=== PATIENT | female | born 1980 | race Caucasian/White ===

== ENCOUNTER 2017-10-05 13:45 | Emergency (ER) | payer OTHER ==
[~2017-10-05] VITALS: Ht 177.8 cm; Wt 61.0 kg
[~2017-10-05 13:45] MED LIST: AMX500 PO; BCPILLS PO
[2017-10-05 13:50] VITALS: TEMP 37; Ht 177.8 cm; Wt 61.0 kg
--- NOTE | 2017-10-05 16:41 | EMERGENCY ROOM VISIT NOTE ---
History First contact with patient: 15:43 Chief Complaint: VOMITING Stated Complaint: VOMITING, DIARRHEA Nursing Triage Summary: c/o n/v/d and diffuse abd pain for 4-5 days intermittantly no urinary complaints History of Present Illness The patient is a 37 year old female who presents to the Emergency Room with 2 week h/o of abdominal pain, nausea with emesis, non-bloosy loose stools a/w nasal congestion and sore throat since about 2 weeks. Pain is sharp, comes in "waves", not necessarily associated with eating. Pain radiates to the back. Stools are bright yellow in color, not white. Has been taking pepto bismol with no effect. Says it doesn't matter what she eats, will feel nauseated all day and have at least one episode of emesis and one of loose stool. She wakes up with the nausea. A/w sweats. Is currently on her period since Thursday. She avoids dairy and has for years because she says it makes her stomach hurt, believes she is lactose intolerant. Denies urinary frequency or burning. Denies h/o abdominal surgeries. Denies sick contacts. Mother has had cholecystectomy and has a hiatal hernia, father at 52 from a [place]. Review of Systems See HPI for pertinent positives and negatives. Past Medical/Surgical History Medical Problems: (1) No Known Active Medical Problems Current/Historical Medications Scheduled Control Pills ( Control Pills), 1 TAB PO DAILY Scheduled PRN Ondansetron Hcl (Zofran), 4 MG PO Q4 PRN for Nausea Physical Exam Vital Signs Date Time Temp Pulse Resp B/P (MAP) Pulse Ox O2 Delivery O2 Flow Rate FiO2 10/05/17 19:14 81 18 137/88 99 10/05/17 17:35 97 16 139/96 98 Room Air 10/05/17 13:50 37.0 119 18 160/98 98 Room Air Physical Exam GENERAL: Awake, alert, well-appearing, in no distress. HENT: Normocephalic, atraumatic. Oropharynx unremarkable. EYES: Normal conjunctiva. Sclera non-icteric. RESPIRATORY: Clear to auscultation. CARDIAC: Regular rate, normal rhythm. Extremities warm and well perfused. Pulses equal. ABDOMEN: Soft, non-distended. Tenderness to palpation in epigastric quadrants bilaterally. + Ya's. No rebound or guarding. No masses. Neg mcburney's point RECTAL: Deferred. MUSCULOSKELETAL: Chest examination reveals no tenderness. The back is symmetrical on inspection without obvious abnormality. Moderate CVA tenderness to palpation. No joint edema. LOWER EXTREMITIES: Calves are equal size bilaterally and non-tender. No edema. No discoloration. SKIN: No rash or jaundice noted. Medical Decision & Procedures Laboratory Results 10/05/17 16:35 Red Blood Count 4.75, Mean Corpuscular Volume 94.1, Mean Corpuscular Hemoglobin 31.6, Mean Corpuscular Hemoglobin Concent 33.6, Mean Platelet Volume 9.8, Neutrophils (%) (Auto) 83.1, Lymphocytes (%) (Auto) 11.8, Monocytes (%) (Auto) 4.3, Eosinophils (%) (Auto) 0.3, Basophils (%) (Auto) 0.3, Neutrophils # (Auto) 5.06, Lymphocytes # (Auto) 0.72, Monocytes # (Auto) 0.26, Eosinophils # (Auto) 0.02, Basophils # (Auto) 0.02 10/05/17 16:35 Test 10/05/17 16:35 10/05/17 16:56 White Blood Count 6.09 K/uL (4.8-10.8) Red Blood Count 4.75 M/uL (4.2-5.4) Hemoglobin 15.0 g/dL (12.0-16.0) Hematocrit 44.7 % (37-47) Mean Corpuscular Volume 94.1 fL (80-100) Mean Corpuscular Hemoglobin 31.6 pg (25-34) Mean Corpuscular Hemoglobin Concent 33.6 g/dl (32-36) Platelet Count 289 K/uL (130-400) Mean Platelet Volume 9.8 fL (7.4-10.4) Neutrophils (%) (Auto) 83.1 % Lymphocytes (%) (Auto) 11.8 % Monocytes (%) (Auto) 4.3 % Eosinophils (%) (Auto) 0.3 % Basophils (%) (Auto) 0.3 % Neutrophils # (Auto) 5.06 K/uL (1.4-6.5) Lymphocytes # (Auto) 0.72 K/uL (1.2-3.4) Monocytes # (Auto) 0.26 K/uL (0.11-0.59) Eosinophils # (Auto) 0.02 K/uL (0-0.5) Basophils # (Auto) 0.02 K/uL (0-0.2) RDW Standard Deviation 44.5 fL (36.4-46.3) RDW Coefficient of Variation 12.9 % (11.5-14.5) Immature Granulocyte % (Auto) 0.2 % Immature Granulocyte # (Auto) 0.01 K/uL (0.00-0.02) Anion Gap 9.0 mmol/L (3-11) Est Creatinine Clear Calc Drug Dose 98.5 ml/min Estimated GFR () 117.0 Estimated GFR (Non- 100.9 BUN/Creatinine Ratio 21.8 (10-20) Calcium Level 9.1 mg/dl (8.5-10.1) Total Bilirubin 0.9 mg/dl (0.2-1) Aspartate Amino Transf (AST/SGOT) 21 U/L (15-37) Alanine Aminotransferase (ALT/SGPT) 29 U/L (12-78) Alkaline Phosphatase 95 U/L (45-117) Total Protein 8.4 gm/dl (6.4-8.2) Albumin 4.2 gm/dl (3.4-5.0) Globulin 4.2 gm/dl (2.5-4.0) Albumin/Globulin Ratio 1.0 (0.9-2) Lipase 152 U/L (73-393) Urine Color YELLOW Urine Appearance CLEAR (CLEAR) Urine pH 5.0 (4.5-7.5) Urine Specific [place] 1.030 (1.000-1.030) Urine Protein TRACE (NEG) Urine Glucose (UA) NEG (NEG) Urine Ketones TRACE (NEG) Urine Occult Blood NEG (NEG) Urine Nitrite NEG (NEG) Urine Bilirubin NEG (NEG) Urine Urobilinogen NEG (NEG) Urine Leukocyte Esterase NEG (NEG) Urine WBC (Auto) 1-5 /hpf (0-5) Urine RBC (Auto) 0-4 /hpf (0-4) Urine Hyaline Casts (Auto) 1-5 /lpf (0-5) Urine Epithelial Cells (Auto) 10-20 /lpf (0-5) Urine Bacteria (Auto) NEG (NEG) Medications Administered Medications (Trade) Dose Ordered Sig/Allen Route Start Time Stop Time Status Last Admin Dose Admin Sodium Chloride 500 ml @ 999 mls/hr Q31M IV 10/05/17 17:45 10/05/17 19:28 DC 10/05/17 17:48 999 MLS/HR Ketorolac Tromethamine (Toradol Inj) 30 mg NOW STAT IV 10/05/17 17:45 10/05/17 17:47 DC 10/05/17 17:58 30 MG Ondansetron HCl (Zofran Inj) 4 mg NOW STAT IV 10/05/17 17:45 10/05/17 17:47 DC 10/05/17 17:58 4 MG ED Course 1600 reviewed records, assessed pt 1620 ordered cbc, cmp, lipase, UA, US limited 1746 d/w attending, ordered 500 NSS 2 999ml/hr, 30 toradol IV, 4mg Zofran IV. 1750 reviewed labs - cbc, chem inc lipase and alt/ast all normal. Slight hypokalemia 3.4. Urine shows no infection. 1826 reviewed abd ultrasound - gallbladder normal. Possible non obstructing renal calculi. 1845 d/w pt all labs and imaging, including incidental kidney stone finding. Pt states she had kidney stones years ago when she was . Will send script for zofran, pt agrees with this. Discussed establishing with a pcp, she is due for a pap. Medical Decision The patient is a 37 year old female who presents to the Emergency Room with 2 week h/o of abdominal pain, nausea with emesis, non-bloosy loose stools a/w nasal congestion and sore throat since about 2 weeks. Pain is sharp, comes in "waves", not necessarily associated with eating. Pain radiates to the back. Stools are bright yellow in color, not white. Has been taking pepto bismol with no effect. Says it doesn't matter what she eats, will feel nauseated all day and have at least one episode of emesis and one of loose stool. She wakes up with the nausea. A/w sweats. Is currently on her period since Thursday. She avoids dairy and has for years because she says it makes her stomach hurt, believes she is lactose intolerant. Denies urinary frequency or burning. Denies h/o abdominal surgeries. Denies sick contacts. Mother has had cholecystectomy and has a hiatal hernia, father at 52 from a [place]. Ddx: cholecystitis, appendicitis, gastroenteritis, UTI Pt's lab work inc liver enzymes and lipase are all unremarkable. Gallbladder on ultrasound is wnl. Incidental finding suggestive of two 6mm non obstructing renal stones likely non contributory to today's symptoms. Discussed all of this with the patient, and suspect this is due to viral gastroenteritis. Discussed bland low fiber diet, taking anti nausea medication as prescribed and pain control with tylenol. Also discussed the need to establish with a pcp here in town. Pt verbalized understanding and agreement. Stable for discharge. Impression Primary Impression: Gastroenteritis Additional Impression: Vomiting Departure Information Dispostion Home / Self-Care Condition GOOD Prescriptions Ondansetron Hcl (ZOFRAN) 4 Mg Tab 4 MG PO Q4 Y for Nausea for 7 Days, #14 TAB Prov: Guerita Zavala M.D. 10/05/17 Referrals No Doctor, Assigned (PCP) Patient Instructions My [facility] Additional Instructions You were seen in the ED for your symptoms of vomiting, loose stools and abdominal pain. After ruling out serious causes like gall bladder inflammation, we suspect this is due to a temporary viral infection of your gut. Please take the Zofran as prescribed: Zofran (ondansetron) tablets 4mg: Take one every 4 hours as needed for nausea. Stay on a bland diet - eat bananas, rice, applesauce, and toast. Eat low fiber foods like mashed potatoes. Abstain from alcohol. For pain use tylenol as prescribed on the bottle. DO NOT EXCEED MAXIMUM DAILY DOSE. We urge you to establish with a primary care physician. Resident Tracking Resident Involvement: Resident Care Provided Care Provided: Adult ED Problem Qualifiers
[2017-10-05 17:12] LABS: BASO % 0.3 %; BASO ABS # 0.02 K/uL (0-0.2); EOS % 0.3 %; EOS ABS # 0.02 K/uL (0-0.5); HEMATOCRIT 44.7 % (37-47); IG# 0.01 K/uL (0.00-0.02); LYMPH % 11.8 %; LYMPH ABS # 0.72 K/uL (1.2-3.4); MEAN CELL VOLUME 94.1 fL (80-100); MEAN CORPUSCULAR HEMOGLOBIN 31.6 pg (25-34); MEAN CORPUSCULAR HGB CONC 33.6 g/dl (32-36); MEAN PLATELET VOLUME 9.8 fL (7.4-10.4); MONO % 4.3 %; MONO ABS # 0.26 K/uL (0.11-0.59); NEUT % 83.1 %; NEUT ABS # 5.06 K/uL (1.4-6.5); PLATELET COUNT 289 K/uL (130-400); RED CELL DISTRIBUTION WIDTH CV 12.9 % (11.5-14.5); RED CELL DISTRIBUTION WIDTH SD 44.5 fL (36.4-46.3); WHITE BLOOD COUNT 6.09 K/uL (4.8-10.8)
[2017-10-05 17:32] LABS: ALBUMIN 4.2 gm/dl (3.4-5.0); CALCIUM 9.1 mg/dl (8.5-10.1); CREATININE 0.76 mg/dl (0.60-1.20); POTASSIUM 3.4 mmol/L (3.5-5.1)
[2017-10-05 17:35] LABS: TOTAL PROTEIN 8.4 gm/dl (6.4-8.2)
[2017-10-05] MEDS ORDERED: ONDANSETRON INJ 2 MG/ML 2 ML VIAL IV STA (17:45)
[2017-10-05] MEDS ORDERED: KETOROLAC TROMETHAMINE 30 MG/ML VIAL IV STA (17:45)
[2017-10-05] MEDS: SODIUM CHLORIDE 0.9% 500ML 500 ML IV SCH ×3 (17:48→18:47)
--- NOTE | 2017-10-05 17:51 | EMERGENCY ROOM VISIT NOTE ---
History Report prepared by Radha: Rolo Vera Under the Supervision of: Dr. Jill Barrios D.O. First contact with patient: 15:43 Chief Complaint: VOMITING Stated Complaint: VOMITING, DIARRHEA Nursing Triage Summary: c/o n/v/d and diffuse abd pain for 4-5 days intermittantly no urinary complaints History of Present Illness The patient is a 37 year old female who presents to the Emergency Room with intermittent vomiting that began 2 weeks ago. Over this time, the patient has had multiple symptoms including, sinus congestion, sore throat, abdominal pain, nausea, and diarrhea. The abdominal pain is described as sharp and waxing/ waning. She notes that her stools are yellow in color. She has been trying to relieve her symptoms with Pepto Bismol without relief. She states that no matter what she eats, she will feel nauseated the rest of the day and have at least one episode of vomiting and diarrhea. Her last menstrual period was three days ago. She believes that she is lactose intolerant, but it has not been diagnosed. She denies any abnormal urinary symptoms, sick contacts, or abdominal surgeries. Source of History: patient Onset: 2 weeks ago Position: other (GI) Symptom Intensity: Multiple episodes Quality: other (Vomiting) Timing: intermittent Associated Symptoms: + sorethroat, + nausea, + abdominal pain, + diarrhea, No urinary symptoms Note: She is having some sinus congestion. Review of Systems See HPI for pertinent positives & negatives. A total of 10 systems reviewed and were otherwise negative. Past Medical & Surgical Medical Problems: (1) No Known Active Medical Problems Family History Heart disease Social History Drug Use: none Marital Status: Housing Status: lives with significant other Occupation Status: employed Current/Historical Medications Scheduled Control Pills ( Control Pills), 1 TAB PO DAILY Allergies Coded Allergies: Aspirin (Unverified Allergy, Unknown, HIVES , 10/05/17) Physical Exam Vital Signs Date Time Temp Pulse Resp B/P (MAP) Pulse Ox O2 Delivery O2 Flow Rate FiO2 10/05/17 19:14 81 18 137/88 99 10/05/17 17:35 97 16 139/96 98 Room Air 10/05/17 13:50 37.0 119 18 160/98 98 Room Air Physical Exam For complete physical exam-please see dictation by resident physician Dr. Zavala Abdomen: Soft and nondistended. The patient does have some mild reproducible discomfort with palpation in the right upper quadrant of the abdomen. There is no rigidity or guarding. Bowel sounds are normal. Medical Decision & Procedures ER Provider Diagnostic Interpretation: Right upper quadrant: INTERPRETED BY RADIOLOGY IMPRESSION: 1. No cholelithiasis or biliary ductal dilatation. 2. Two nonobstructing 6 mm right renal calculi suspected. No hydronephrosis. Laboratory Results 10/05/17 16:35 Red Blood Count 4.75, Mean Corpuscular Volume 94.1, Mean Corpuscular Hemoglobin 31.6, Mean Corpuscular Hemoglobin Concent 33.6, Mean Platelet Volume 9.8, Neutrophils (%) (Auto) 83.1, Lymphocytes (%) (Auto) 11.8, Monocytes (%) (Auto) 4.3, Eosinophils (%) (Auto) 0.3, Basophils (%) (Auto) 0.3, Neutrophils # (Auto) 5.06, Lymphocytes # (Auto) 0.72, Monocytes # (Auto) 0.26, Eosinophils # (Auto) 0.02, Basophils # (Auto) 0.02 10/05/17 16:35 Test 10/05/17 16:35 10/05/17 16:56 White Blood Count 6.09 K/uL (4.8-10.8) Red Blood Count 4.75 M/uL (4.2-5.4) Hemoglobin 15.0 g/dL (12.0-16.0) Hematocrit 44.7 % (37-47) Mean Corpuscular Volume 94.1 fL (80-100) Mean Corpuscular Hemoglobin 31.6 pg (25-34) Mean Corpuscular Hemoglobin Concent 33.6 g/dl (32-36) Platelet Count 289 K/uL (130-400) Mean Platelet Volume 9.8 fL (7.4-10.4) Neutrophils (%) (Auto) 83.1 % Lymphocytes (%) (Auto) 11.8 % Monocytes (%) (Auto) 4.3 % Eosinophils (%) (Auto) 0.3 % Basophils (%) (Auto) 0.3 % Neutrophils # (Auto) 5.06 K/uL (1.4-6.5) Lymphocytes # (Auto) 0.72 K/uL (1.2-3.4) Monocytes # (Auto) 0.26 K/uL (0.11-0.59) Eosinophils # (Auto) 0.02 K/uL (0-0.5) Basophils # (Auto) 0.02 K/uL (0-0.2) RDW Standard Deviation 44.5 fL (36.4-46.3) RDW Coefficient of Variation 12.9 % (11.5-14.5) Immature Granulocyte % (Auto) 0.2 % Immature Granulocyte # (Auto) 0.01 K/uL (0.00-0.02) Anion Gap 9.0 mmol/L (3-11) Est Creatinine Clear Calc Drug Dose 98.5 ml/min Estimated GFR () 117.0 Estimated GFR (Non- 100.9 BUN/Creatinine Ratio 21.8 (10-20) Calcium Level 9.1 mg/dl (8.5-10.1) Total Bilirubin 0.9 mg/dl (0.2-1) Aspartate Amino Transf (AST/SGOT) 21 U/L (15-37) Alanine Aminotransferase (ALT/SGPT) 29 U/L (12-78) Alkaline Phosphatase 95 U/L (45-117) Total Protein 8.4 gm/dl (6.4-8.2) Albumin 4.2 gm/dl (3.4-5.0) Globulin 4.2 gm/dl (2.5-4.0) Albumin/Globulin Ratio 1.0 (0.9-2) Lipase 152 U/L (73-393) Urine Color YELLOW Urine Appearance CLEAR (CLEAR) Urine pH 5.0 (4.5-7.5) Urine Specific [place] 1.030 (1.000-1.030) Urine Protein TRACE (NEG) Urine Glucose (UA) NEG (NEG) Urine Ketones TRACE (NEG) Urine Occult Blood NEG (NEG) Urine Nitrite NEG (NEG) Urine Bilirubin NEG (NEG) Urine Urobilinogen NEG (NEG) Urine Leukocyte Esterase NEG (NEG) Urine WBC (Auto) 1-5 /hpf (0-5) Urine RBC (Auto) 0-4 /hpf (0-4) Urine Hyaline Casts (Auto) 1-5 /lpf (0-5) Urine Epithelial Cells (Auto) 10-20 /lpf (0-5) Urine Bacteria (Auto) NEG (NEG) Laboratory results per my review. Medications Administered Medications (Trade) Dose Ordered Sig/Allen Route Start Time Stop Time Status Last Admin Dose Admin Sodium Chloride 500 ml @ 999 mls/hr Q31M IV 10/05/17 17:45 10/05/17 19:28 DC 10/05/17 17:48 999 MLS/HR Ketorolac Tromethamine (Toradol Inj) 30 mg NOW STAT IV 10/05/17 17:45 10/05/17 17:47 DC 10/05/17 17:58 30 MG Ondansetron HCl (Zofran Inj) 4 mg NOW STAT IV 10/05/17 17:45 10/05/17 17:47 DC 10/05/17 17:58 4 MG Procedure Zofran Inj 4 mg IV Toradol Inj 30 mg IV Sodium Chloride 500 ml @ 999 mls/hr IV ED Course 1543: Past medical records reviewed. The patient was evaluated in room B5 initially by the resident physician who did a complete history and physical exam. An IV lock was initiated and labs are drawn as above. 1745: Ordered Zofran Inj 4 mg IV, Toradol Inj 30 mg IV, Sodium Chloride 500 ml @ 999 mls/hr IV. 1800: The patient went for right upper quadrant ultrasound as described above. Medical Decision The patient is a 37 year old female who presents to the ED with episodes of vomiting. Differential diagnosis includes ulcerative disease, gastroenteritis, pancreatitis, cholecystitis, colitis, gluten sensitivity, or lactose intolerance. Laboratory Results: White blood cell count normal, stable H&H, normal renal function and glucose, normal LFTs and lipase, urine trace proteins and trace ketones. This is a 37 year old female patient who presents with a two-week history of intermittent vomiting, abdominal pain and diarrhea. Laboratory studies were fairly unremarkable. Ultrasound shows no obvious cholecystitis. There was some right-sided ureteral stones. I do not suspect ureteral obstruction as the patient has no blood in her urine and the pain is clearly reproducible with palpation of the right upper quadrant of the abdomen. The patient was instructed to follow up closely with her PCP or return here to the emergency department for worsening symptoms. Medication Reconcilliation Current Medication List: was personally reviewed by me Blood Pressure Screening Patient's blood pressure: Elevated blood pressure Blood pressure disposition: Elevated BP felt to be situational Impression Primary Impression: RUQ abdominal pain Additional Impression: Gastroenteritis Scribe Attestation The scribe's documentation has been prepared under my direction and personally reviewed by me in its entirety. I confirm that the note above accurately reflects all work, treatment, procedures, and medical decision making performed by me. Departure Information Dispostion Home / Self-Care Referrals No Doctor, Assigned (PCP) Patient Instructions My [facility] Problem Qualifiers
--- NOTE | 2017-10-05 18:20 | DIAGNOSTIC IMAGING REPORT ---
GALLBLADDER-ABD LIMITED CLINICAL HISTORY: 37 years-old Female presenting with epigastric pain. TECHNIQUE: Real-time grayscale and limited color Doppler ultrasound imaging of the abdomen limited to the right upper quadrant was performed. COMPARISON: None. FINDINGS: Pancreas: Visualized portions of the pancreatic head and body normal. Liver: Normal echogenicity and echotexture. The liver measures 17.1 cm in maximal sagittal dimension. No sonographic evidence of hepatic mass. Main portal vein patent with normal directional flow. Biliary: No intrahepatic biliary ductal dilatation. Common bile duct measures up to floor mm in diameter. Gallbladder: No evidence of gallstones, gallbladder wall thickening, gallbladder distention, or pericholecystic fluid or inflammatory change. Sonographic Ya's sign negative. Right kidney: Two 6 mm hyperechogenic foci with twinkling artifact suggest the presence of renal calculi. No hydronephrosis. Ascites: None. IMPRESSION: 1. No cholelithiasis or biliary ductal dilatation. 2. Two nonobstructing 6 mm right renal calculi suspected. No hydronephrosis. Electronically signed by: Leeroy Paige M.D. 10/05/2017 6:19 PM Dictated Date/Time: 10/05/2017 6:17 PM
[2017-10-05 19:14] VITALS: BP 137/88; PULSE 81; O2SAT 99
[2017-10-05] MEDS ORDERED: ONDA4TAB46 PO (20:02)
== END 2017-10-05 19:16 | disposition home or self-care (01) ==
LOC: C.EDB 13:47
DX: R10.11 Right upper quadrant pain (principal); K52.9 Noninfective gastroenteritis and colitis, unspecified; Z82.49 Family history of ischemic heart disease and other diseases of the circulatory system; R11.10 Vomiting, unspecified